=== PATIENT | female | born 1985 | race Caucasian/White ===

== ENCOUNTER 2020-03-07 18:54 | Emergency (ER) | payer OTHER ==
[2020-03-07] MEDS ORDERED: Sodium Chloride 0.9% 2.5 ML Syringe FLUSH PRN (19:38)
[2020-03-07 20:22] LABS: BLOOD UREA NITROGEN,BUN 7 mg/dL (7.0-18.0); CARBON DIOXIDE,CO2 25.5 mmol/L (21.0-32.0); CHLORIDE,CL 102 mmol/L (98-107); GLUCOSE RANDOM 91 mg/dL (74-106); LIPASE 84 U/L (73-393); POTASSIUM,K 3.7 mmol/L (3.5-5.1); SODIUM,NA 137 mmol/L (136-145)
[2020-03-07] MEDS ORDERED: Ketorolac 30 MG/ML SDV IVPUSH ONE (21:19)
[2020-03-07] MEDS ORDERED: Ondansetron 4 MG/2 ML SDV IVPUSH ONE (21:19)
[2020-03-07] MEDS: Sodium Chloride 0.9% 10 ML Syringe FLUSH PRN (21:31)
[2020-03-07] MEDS ORDERED: Morphine 2 MG/ML SYRINGE IVPUSH ONE (21:49)
[2020-03-07] MEDS ORDERED: Iopamidol 755 Mg/ML 100 ML Bottle IVPUSH STA (21:51)
--- NOTE | 2020-03-07 22:35 | CT ---
INDICATION: Right sided abdominal pain TECHNIQUE: CT Abdomen and pelvis with i.v. contrast. Coronal and sagittal reformats were obtained. CONTRAST: 100 mL Isovue 370 COMPARISON: None FINDINGS: Lower chest: Unremarkable. A left breast implant is partially visualized. Liver: Unremarkable. Spleen: Unremarkable. Pancreas: Unremarkable. Gallbladder: Unremarkable. Kidney: Unremarkable. No kidney or ureteral stones or obstruction seen. Adrenal: Unremarkable. Bowel: Mild diverticulosis of the descending colon is noted. Previous appendectomy noted with no significant appendiceal stump identified. Vascular: Unremarkable. Lymph: Bilateral inguinal and external iliac adenopathy noted with lymph nodes measuring up to 1.4 cm. Peritoneum: Unremarkable. No pneumoperitoneum is seen. Trace amount of ascites is present and is likely physiologic in origin. Pelvis: There is a ring-enhancing lesion in the right ovary that measures 2.5 cm. This is most likely a corpus luteal cyst. Soft tissue: Unremarkable. Bone: Unremarkable for age. IMPRESSION: 1. Bilateral inguinal and external iliac adenopathy noted with lymph nodes measuring up to 1.4 cm. Dictated by Anthony Toledo MD @ 03/07/2020 10:34:56 PM Please note that all CT scans at this facility use dose modulation, iterative reconstruction, and/or weight-based dosing when appropriate to reduce radiation dose to as low as reasonably achievable. Dictated by: Anthony Toledo MD @ 03/07/2020 22:35:18 (Electronically Signed)
--- NOTE | 2020-03-07 23:11 | EDM.PDOC ---
ED HPI GENERAL MEDICAL PROBLEM - General Chief Complaint: USED [employer] Problem Stated Complaint: PELVIC PAIN Time Seen by Provider: 03/07/20 18:55 Source of Information: Reports: Patient History Limitations: Reports: No Limitations - History of Present Illness INITIAL COMMENTS - FREE TEXT/NARRATIVE: HISTORY AND PHYSICAL: History of present illness: Patient is a 34-year-old female who presents to the ED today with concern of right-sided pelvic pain x4 days. Patient states that she was seen in the clinic on Saturday and was told that she had a urinary tract infection and states that she has been taking an antibiotic without improvement of her symptoms and has had worsening right-sided pelvic pain. Patient states that she has had a history of appendectomy and states that she has had several cysts in the past of her ovaries. Patient states that following this pain she began having some "lesions" of her vagina area which are painful. Patient states that she has had the same sexual partner for 6 months and is not concerned for sexually transmitted infection. Patient states that these lesions hurt to the touch but feels like a separate pain than her right sided pelvic pain. Patient denies any trauma or injury or any other symptoms or concerns. Patient denies fever, chills, chest pain, shortness of breath, or cough. Denies headache, neck stiff ness, change in vision, syncope, or near syncope. Denies nausea, vomiting, diarrhea, constipation, or dysuria. Has not noted any blood in urine or stool. Patient has been eating and drinking appropriately. Review of systems: As per history of present illness and below otherwise all systems reviewed and negative. Past medical history: As per history of present illness and as reviewed below otherwise noncontributory. Surgical history: As per history of present illness and as reviewed below otherwise noncontributory. Social history: See social history for further information Family history: As per history of present illness and as reviewed below otherwise noncontributory. Physical exam: General: Patient is alert, oriented, and in no acute distress. Patient laying comfortably on exam table. Vitals stable and reviewed by me. HEENT: Atraumatic, normocephalic, pupils equal and reactive bilaterally, negative for conjunctival pallor or scleral icterus, mucous membranes moist, TMs normal bilaterally, throat clear, neck supple, nontender, trachea midline. No drooling or trismus noted. No meningeal signs. No hot potato voice noted. Lungs: Clear to auscultation, breath sounds equal bilaterally, chest nontender. Heart: S1S2, regular rate and rhythm without overt murmur Abdomen: Soft, nondistended, nontender. Negative for masses or hepatosplenomegaly. Negative for costovertebral tenderness. Pelvis: Stable nontender. Genitourinary: Advertising Copy Writer at bedside Shivani Beard. There are scattered 1-2mm blister scattered over the left and right labia majora and minora that are painful to palpation. There is a moderate amount of white vaginal discharge in the vaginal vault. Negative cervical motion tenderness but patient does have tenderness of the right adnexa. Rectal: Deferred. Skin: Intact, warm, dry. No lesions or rashes noted. Extremities: Atraumatic, negative for cords or calf pain. Neurovascular unremarkable. Neuro: Awake, alert, oriented. Cranial nerves II through XII unremarkable. Cerebellum unremarkable. Motor and sensory unremarkable throughout. Exam nonfocal. Notes: TVUS and abd/pelvic CT scan delayed due to ER status. Patient monitored and comfortable/stable following therapeutics. Dr. Martinez has assumed care of patient at 23:00 pending abd/pelvic CT, TVUS and reevaluation of patient for further treatment and disposition. Diagnostics: CBC, CMP, UA, urine hCG, lipase, abdominal pelvic CT with contrast, transvaginal ultrasound, HSV, gonorrhea and chlamydia, affirm Therapeutics: Toradol, Morphine, Zofran Prescription: Acyclovir Impression: Right sided adnexal pain Labial lesions, multiple, presumed HSV infection Transaminitis, unspecified Plan: Definitive disposition and diagnosis as appropriate pending reevaluation and review of above. pelvic Pain Score (Numeric/FACES): 10 - Related Data Allergies Allergy/AdvReac Type Severity Reaction Status Date / Time No Known Allergies Allergy Verified 03/07/20 19:22 Home Meds: Home Meds Ibuprofen 1 tab PO TID PRN 03/07/20 [History] cefUROXime axetiL [Cefuroxime] 1 tab PO BID 03/07/20 [History] Acetaminophen [Tylenol Extra Strength] 1,000 mg PO Q6H #28 tab 03/08/20 [Rx] Ibuprofen [Motrin] 600 mg PO Q8H #21 tab 03/08/20 [Rx] valACYclovir [Valtrex] 1,000 mg PO BID 7 Days #14 tablet 03/08/20 [Rx] Past Medical History USED [employer] History: Reports: - Past Surgical History GI Surgical History: Reports: Appendectomy Social & Family History - Family History Family Medical History: Noncontributory - Tobacco Use Smoking Status *Q: Never Smoker - Recreational Drug Use Recreational Drug Use: No ED ROS GENERAL - Review of Systems Review Of Systems: Comprehensive ROS is negative, except as noted in HPI. ED EXAM, GENERAL - Physical Exam Exam: See Below (see dictation) Course - Vital Signs Last Recorded V/S: Last Vital Signs Temp 97.9 F 03/07/20 19:19 Pulse 93 03/07/20 19:19 Resp 16 03/07/20 19:19 BP 129/85 03/07/20 19:19 Pulse Ox 96 03/07/20 19:19 - Orders/Labs/Meds Orders: Active Orders 24 hr Category Date Time Status CHLAMYDIA AND GONORRHEA BY TMA Stat Lab 03/07/20 20:50 Received CORONAVIRUS COVID-19 PCR PHL Stat Lab 03/07/20 22:10 Received CULTURE BLOOD [BC] Stat Lab 03/07/20 19:54 Received CULTURE BLOOD [BC] Stat Lab 03/07/20 20:03 Results CULTURE URINE [RM] Stat Lab 03/07/20 19:35 Received HSV 1/2 PCR [REF] Stat Lab 03/07/20 22:27 Received HSV AMPLIFIED MOLECULAR [MREF] Stat Lab 03/08/20 02:32 Received HSV, TYPES 1 & 2, IGM AB, IND [REF] Stat Lab 03/07/20 22:27 Received Blood Culture x2 Reflex Set [OM.PC] Stat Oth 03/07/20 19:46 Ordered Saline Lock Insert [OM.PC] Stat Oth 03/07/20 19:38 Ordered Labs: Laboratory Tests 03/07/20 03/07/20 03/07/20 Range/Units 19:35 19:35 19:35 WBC 10.41 (4.0-11.0) K/uL RBC 4.26 L (4.30-5.90) M/uL Hgb 13.9 (12.0-16.0) g/dL Hct 39.9 (36.0-46.0) % MCV 93.7 (80.0-98.0) fL MCH 32.6 H (27.0-32.0) pg MCHC 34.8 (31.0-37.0) g/dL RDW Std Deviation 45.0 (28.0-62.0) fl RDW Coeff of Dagoberto 13 (11.0-15.0) % Plt Count 281 (150-400) K/uL MPV 10.50 (7.40-12.00) fL Neut % (Auto) 64.8 (48.0-80.0) % Lymph % (Auto) 25.0 (16.0-40.0) % [place] % (Auto) 9.1 (0.0-15.0) % Eos % (Auto) 0.6 (0.0-7.0) % Baso % (Auto) 0.5 (0.0-1.5) % Neut # (Auto) 6.8 H (1.4-5.7) K/uL Lymph # (Auto) 2.6 H (0.6-2.4) K/uL [place] # (Auto) 1.0 H (0.0-0.8) K/uL Eos # (Auto) 0.1 (0.0-0.7) K/uL Baso # (Auto) 0.1 (0.0-0.1) K/uL Nucleated RBC % 0.0 /100WBC Nucleated RBCs # 0 K/uL Lactate (0.20-2.00) mmol/L Sodium (136-145) mmol/L Potassium (3.5-5.1) mmol/L Chloride (98-107) mmol/L Carbon Dioxide (21.0-32.0) mmol/L BUN (7.0-18.0) mg/dL Creatinine (0.6-1.0) mg/dL Est Cr Clr Drug Dosing mL/min Estimated GFR (MDRD) ml/min Glucose (74-106) mg/dL Calcium (8.5-10.1) mg/dL Total Bilirubin (0.2-1.0) mg/dL AST (15-37) IU/L ALT (14-63) IU/L Alkaline Phosphatase (46-116) U/L Total Protein (6.4-8.2) g/dL Albumin (3.4-5.0) g/dL Globulin (2.6-4.0) g/dL Albumin/Globulin Ratio (0.9-1.6) Lipase (73-393) U/L Urine Color YELLOW Urine Appearance CLEAR Urine pH 7.0 (5.0-8.0) Ur Specific [place] <= 1.005 (1.001-1.035) Urine Protein NEGATIVE (NEGATIVE) mg/dL Urine Glucose (UA) NEGATIVE (NEGATIVE) mg/dL Urine Ketones NEGATIVE (NEGATIVE) mg/dL Urine Occult Blood SMALL H (NEGATIVE) Urine Nitrite NEGATIVE (NEGATIVE) Urine Bilirubin NEGATIVE (NEGATIVE) Urine Urobilinogen 0.2 (<2.0) EU/dL Ur Leukocyte Esterase SMALL H (NEGATIVE) Urine RBC 0-2 (0-2/HPF) Urine WBC 2-3 (0-5/HPF) Ur Epithelial Cells OCCASIONAL (NONE-FEW) Amorphous Sediment RARE (NEGATIVE) Urine Bacteria FEW (NEGATIVE) Urine Mucus RARE (NONE-MOD) Urine HCG, Qual NEGATIVE (NEGATIVE) Tamica species DNA (NEGATIVE) Gardnerella DNA Probe (NEGATIVE) SARS CoV-2 RNA Rapid YENI (NEGATIVE) Trichomonas DNA Probe (NEGATIVE) 03/07/20 03/07/20 03/07/20 Range/Units 19:35 20:03 20:50 WBC (4.0-11.0) K/uL RBC (4.30-5.90) M/uL Hgb (12.0-16.0) g/dL Hct (36.0-46.0) % MCV (80.0-98.0) fL MCH (27.0-32.0) pg MCHC (31.0-37.0) g/dL RDW Std Deviation (28.0-62.0) fl RDW Coeff of Dagoberto (11.0-15.0) % Plt Count (150-400) K/uL MPV (7.40-12.00) fL Neut % (Auto) (48.0-80.0) % Lymph % (Auto) (16.0-40.0) % [place] % (Auto) (0.0-15.0) % Eos % (Auto) (0.0-7.0) % Baso % (Auto) (0.0-1.5) % Neut # (Auto) (1.4-5.7) K/uL Lymph # (Auto) (0.6-2.4) K/uL [place] # (Auto) (0.0-0.8) K/uL Eos # (Auto) (0.0-0.7) K/uL Baso # (Auto) (0.0-0.1) K/uL Nucleated RBC % /100WBC Nucleated RBCs # K/uL Lactate 0.8 (0.20-2.00) mmol/L Sodium 137 (136-145) mmol/L Potassium 3.7 (3.5-5.1) mmol/L Chloride 102 (98-107) mmol/L Carbon Dioxide 25.5 (21.0-32.0) mmol/L BUN 7 (7.0-18.0) mg/dL Creatinine 0.7 (0.6-1.0) mg/dL Est Cr Clr Drug Dosing 112.20 mL/min Estimated GFR (MDRD) > 60.0 ml/min Glucose 91 (74-106) mg/dL Calcium 8.6 (8.5-10.1) mg/dL Total Bilirubin 0.4 (0.2-1.0) mg/dL AST 50 H (15-37) IU/L ALT 88 H (14-63) IU/L Alkaline Phosphatase 84 (46-116) U/L Total Protein 7.4 (6.4-8.2) g/dL Albumin 4.0 (3.4-5.0) g/dL Globulin 3.4 (2.6-4.0) g/dL Albumin/Globulin Ratio 1.2 (0.9-1.6) Lipase 84 (73-393) U/L Urine Color Urine Appearance Urine pH (5.0-8.0) Ur Specific [place] (1.001-1.035) Urine Protein (NEGATIVE) mg/dL Urine Glucose (UA) (NEGATIVE) mg/dL Urine Ketones (NEGATIVE) mg/dL Urine Occult Blood (NEGATIVE) Urine Nitrite (NEGATIVE) Urine Bilirubin (NEGATIVE) Urine Urobilinogen (<2.0) EU/dL Ur Leukocyte Esterase (NEGATIVE) Urine RBC (0-2/HPF) Urine WBC (0-5/HPF) Ur Epithelial Cells (NONE-FEW) Amorphous Sediment (NEGATIVE) Urine Bacteria (NEGATIVE) Urine Mucus (NONE-MOD) Urine HCG, Qual (NEGATIVE) Tamica species DNA NEGATIVE (NEGATIVE) Gardnerella DNA Probe NEGATIVE (NEGATIVE) SARS CoV-2 RNA Rapid YENI (NEGATIVE) Trichomonas DNA Probe NEGATIVE (NEGATIVE) 03/07/20 Range/Units 22:10 WBC (4.0-11.0) K/uL RBC (4.30-5.90) M/uL Hgb (12.0-16.0) g/dL Hct (36.0-46.0) % MCV (80.0-98.0) fL MCH (27.0-32.0) pg MCHC (31.0-37.0) g/dL RDW Std Deviation (28.0-62.0) fl RDW Coeff of Dagoberto (11.0-15.0) % Plt Count (150-400) K/uL MPV (7.40-12.00) fL Neut % (Auto) (48.0-80.0) % Lymph % (Auto) (16.0-40.0) % [place] % (Auto) (0.0-15.0) % Eos % (Auto) (0.0-7.0) % Baso % (Auto) (0.0-1.5) % Neut # (Auto) (1.4-5.7) K/uL Lymph # (Auto) (0.6-2.4) K/uL [place] # (Auto) (0.0-0.8) K/uL Eos # (Auto) (0.0-0.7) K/uL Baso # (Auto) (0.0-0.1) K/uL Nucleated RBC % /100WBC Nucleated RBCs # K/uL Lactate (0.20-2.00) mmol/L Sodium (136-145) mmol/L Potassium (3.5-5.1) mmol/L Chloride (98-107) mmol/L Carbon Dioxide (21.0-32.0) mmol/L BUN (7.0-18.0) mg/dL Creatinine (0.6-1.0) mg/dL Est Cr Clr Drug Dosing mL/min Estimated GFR (MDRD) ml/min Glucose (74-106) mg/dL Calcium (8.5-10.1) mg/dL Total Bilirubin (0.2-1.0) mg/dL AST (15-37) IU/L ALT (14-63) IU/L Alkaline Phosphatase (46-116) U/L Total Protein (6.4-8.2) g/dL Albumin (3.4-5.0) g/dL Globulin (2.6-4.0) g/dL Albumin/Globulin Ratio (0.9-1.6) Lipase (73-393) U/L Urine Color Urine Appearance Urine pH (5.0-8.0) Ur Specific [place] (1.001-1.035) Urine Protein (NEGATIVE) mg/dL Urine Glucose (UA) (NEGATIVE) mg/dL Urine Ketones (NEGATIVE) mg/dL Urine Occult Blood (NEGATIVE) Urine Nitrite (NEGATIVE) Urine Bilirubin (NEGATIVE) Urine Urobilinogen (<2.0) EU/dL Ur Leukocyte Esterase (NEGATIVE) Urine RBC (0-2/HPF) Urine WBC (0-5/HPF) Ur Epithelial Cells (NONE-FEW) Amorphous Sediment (NEGATIVE) Urine Bacteria (NEGATIVE) Urine Mucus (NONE-MOD) Urine HCG, Qual (NEGATIVE) Tamica species DNA (NEGATIVE) Gardnerella DNA Probe (NEGATIVE) SARS CoV-2 RNA Rapid YENI NEGATIVE (NEGATIVE) Trichomonas DNA Probe (NEGATIVE) Meds: Medications Discontinued Medications Generic Name Dose Route Start Last Admin Trade Name Freq PRN Reason Stop Dose Admin Iopamidol 100 ml 03/07/20 21:51 03/07/20 21:52 Isovue-370 (76%) IVPUSH 03/07/20 21:52 100 ml ONETIME STA Administration Ketorolac Tromethamine 30 mg 03/07/20 21:19 03/07/20 21:32 Toradol IVPUSH 03/07/20 21:20 30 mg ONETIME ONE Administration Morphine Sulfate 2 mg 03/07/20 21:49 03/07/20 21:55 Morphine IVPUSH 03/07/20 21:50 2 mg ONETIME ONE Administration Morphine Sulfate 4 mg 03/08/20 00:44 03/08/20 00:57 Morphine IVPUSH 03/08/20 00:45 4 mg ONETIME ONE Administration Ondansetron HCl 4 mg 03/07/20 21:19 03/07/20 21:31 Zofran IVPUSH 03/07/20 21:20 4 mg ONETIME ONE Administration Sodium Chloride 10 ml 03/07/20 19:38 03/08/20 00:59 Saline Flush FLUSH 10 ml ASDIRECTED PRN Administration Keep Vein Open Sodium Chloride 2.5 ml 03/07/20 19:38 Saline Flush FLUSH ASDIRECTED PRN Keep Vein Open Departure - Departure Time of Disposition: 10:37 Disposition: Home, Self-Care 01 Clinical Impression: Right adnexal tenderness, Labial lesion, Transaminitis - Discharge Information Prescriptions: Ibuprofen [Motrin] 600 mg PO Q8H #21 tab Acetaminophen [Tylenol Extra Strength] 1,000 mg PO Q6H #28 tab valACYclovir [Valtrex] 1,000 mg PO BID 7 Days #14 tablet Instructions: Ovarian Cyst, [id number] Referrals: PCP,Not In Area [Primary Care Provider] - Forms: ED Department Discharge Sepsis Event Note (ED) - Evaluation Sepsis Screening Result: Possible Sepsis Risk - My Orders Last 24 Hours: My Active Orders 03/07/20 19:35 CULTURE URINE [RM] Stat 03/07/20 19:38 Saline Lock Insert [OM.PC] Stat 03/07/20 19:46 Blood Culture x2 Reflex Set [OM.PC] Stat 03/07/20 19:54 CULTURE BLOOD [BC] Stat 03/07/20 20:03 CULTURE BLOOD [BC] Stat 03/07/20 20:50 CHLAMYDIA AND GONORRHEA BY TMA Stat 03/07/20 22:10 CORONAVIRUS COVID-19 PCR PHL Stat 03/07/20 22:27 HSV 1/2 PCR [REF] Stat HSV, TYPES 1 & 2, IGM AB, IND [REF] Stat 03/08/20 02:32 HSV AMPLIFIED MOLECULAR [MREF] Stat - Assessment/Plan Last 24 Hours: My Active Orders 03/07/20 19:35 CULTURE URINE [RM] Stat 03/07/20 19:38 Saline Lock Insert [OM.PC] Stat 03/07/20 19:46 Blood Culture x2 Reflex Set [OM.PC] Stat 03/07/20 19:54 CULTURE BLOOD [BC] Stat 03/07/20 20:03 CULTURE BLOOD [BC] Stat 03/07/20 20:50 CHLAMYDIA AND GONORRHEA BY TMA Stat 03/07/20 22:10 CORONAVIRUS COVID-19 PCR PHL Stat 03/07/20 22:27 HSV 1/2 PCR [REF] Stat HSV, TYPES 1 & 2, IGM AB, IND [REF] Stat 03/08/20 02:32 HSV AMPLIFIED MOLECULAR [MREF] Stat
--- NOTE | 2020-03-08 00:09 | US ---
INDICATION: Right pelvic pain. Negative HCG. COMPARISON: COMPARISON DATE FINDINGS: Transvaginal ultrasound examination of the female pelvis was performed. The uterus is retroflexed with no evidence of mass. It measures 5.9 x 3.6 x 4.1 cm. The endometrial lining is normal in thickness at 7 mm. The right ovary is mildly enlarged by a 2.3 x 2.1 x 2.2 centimeter heterogeneously hypoechoic mass that has mildly increased peripheral color Doppler flow. This is consistent with a hemorrhagic cyst. The ovary measures 4.6 x 2.8 x 4.5 centimeters. The left ovary is normal in size and appearance. It measures 1.6 x 2.0 x 2.7 centimeters. There is normal color and pulse doppler flow in both ovaries. There is a small amount of free fluid in the cul-de-sac, nonspecific. IMPRESSION: Hemorrhagic cyst in the right ovary measuring up to 2.3 centimeters in diameter. Small amount of free fluid in the cul-de-sac. No other abnormality seen in the female pelvis. Dictated by Yonatan Ozuna MD @ Mar 08 2020 12:03AM Signed by Dr. Yonatan Ozuna @ Mar 08 2020 12:08AM
[2020-03-08] MEDS ORDERED: Morphine 4 MG/ML Syringe IVPUSH ONE (00:44)
[2020-03-08] MEDS: Sodium Chloride 0.9% 10 ML Syringe FLUSH PRN (00:59)
--- NOTE | 2020-03-08 05:06 | PCM.SN.2 ---
- Free Text/Narrative Note: Patient was signed out to me by DALE Zuniga pending pelvic ultrasound over concern for ovarian torsion. The radiological images were viewed by myself along with reading the report from the radiologist. Transvaginal ultrasound reveals a right ovary that is mildly enlarged by a 2.3 x 2.1 x 2.2 cm hypoechoic mass that has increased peripheral color Doppler flow consistent with a hemorrhagic cyst. There was a small amount of free fluid in the cul-de-sac. No other abnormalities. After imaging I did reevaluate the patient. She states that she still has some pain. Therefore I contacted Dr. Chauhan regarding the patient's continued pain. He recommends outpatient follow-up for the patient. I did discuss this with the patient and she is amenable to this plan. In addition, there was suggestion of possible new onset herpes outbreak therefore I provided the patient with a Valtrex prescription and that she needs to follow-up with her primary care doctor. She was given strict return precautions. DISPOSITION: The patient was discharged home in stable condition. The patient will follow up with Dr. Chauhan in his clinic CONDITION: Fair PROCEDURES: None FINAL IMPRESSION(S)/DIAGNOSES: 1. Acute right adnexal pain secondary to hemorrhagic cyst 2. Acute herpes outbreak
[2020-03-12 18:02] LABS: C.TRACHOMATIS BY TMA Negative (Negative); N.GONORRHOEAE BY TMA Negative (Negative)
== END 2020-03-08 02:30 | disposition home or self-care (01) ==
LOC: MW.ED 18:54
DX: R10.2 Pelvic and perineal pain (principal); R74.01 Elevation of levels of liver transaminase levels; N90.89 Other specified noninflammatory disorders of vulva and perineum; Z20.828 Contact with and (suspected) exposure to other viral communicable diseases; Z90.49 Acquired absence of other specified parts of digestive tract
CPT/HCPCS: 36415; 74177; 76830; 80053; 81001; 81025; 83605; 83690; 85025; 86695; 86696; 87040; 87086; 87480; 87491; 87510; 87529; 87591; 87635; 87660; 96374; 96375; 96376; 99284; J1885; J2270; J2405; Q9967; 99283; U0002